=== PATIENT | male | born 1990 ===

== ENCOUNTER 2018-10-05 15:57 | Emergency (ER) | payer OTHER, MEDICAID ==
[2018-10-05 15:57] VITALS: BMI 33.6
[2018-10-05 16:12] VITALS: RESP 18; TEMP 99.5; O2SAT 99
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
[2018-10-05 17:25] VITALS: BP 131/71; PULSE 94
== END 2018-10-05 17:26 | disposition home or self-care (01) ==
LOC: ED 15:57
DX: R51 Headache (principal); V49.49XA Driver injured in collision with other motor vehicles in traffic accident, initial encounter; Y92.410 Unspecified street and highway as the place of occurrence of the external cause

== ENCOUNTER 2018-10-06 10:55 | Emergency (ER) | payer OTHER, MEDICAID ==
[2018-10-06 10:55] VITALS: BMI 33.6
[2018-10-06 11:17] VITALS: TEMP 98.6
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
[2018-10-06 12:21] VITALS: BP 130/70; PULSE 78; RESP 18; O2SAT 99
== END 2018-10-06 12:20 | disposition home or self-care (01) ==
LOC: ED 10:55
DX: F07.81 Postconcussional syndrome (principal)

== ENCOUNTER 2018-10-16 21:10 | Emergency (ER) | payer OTHER, MEDICAID ==
[2018-10-16 21:10] VITALS: BMI 33.6
[2018-10-16 21:20] VITALS: TEMP 98
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
[2018-10-16 22:46] VITALS: BP 123/56; PULSE 75; RESP 19; O2SAT 100
--- NOTE | 2018-10-17 10:09 | RAD ---
PROCEDURE: Left Hand Radiographs. HISTORY: punched the door x 2 hours COMPARISON: None. FINDINGS: BONES: There is a transverse fracture of the neck of the 4th metacarpal. There is a comminuted fracture of the head and neck of the 5th metacarpal JOINTS: Normal. No osteoarthritic changes. SOFT TISSUES: Normal. OTHER FINDINGS: None. IMPRESSION: There is a transverse fracture of the neck of the 4th metacarpal. There is a comminuted fracture of the head and neck of the 5th metacarpal
== END 2018-10-16 22:41 | disposition home or self-care (01) ==
LOC: ED 21:10
DX: S62.337A Displaced fracture of neck of fifth metacarpal bone, left hand, initial encounter for closed fracture (principal); W22.8XXA Striking against or struck by other objects, initial encounter